=== PATIENT | female | born 2000 | race Caucasian/White ===

== ENCOUNTER 2024-11-30 04:06 | Day surgery (SDC) | payer OTHER ==
[~2024-11-30] VITALS: Ht 157.5 cm; Wt 48.5 kg
[2024-11-30] VITALS (203 sets, daily range): BP systolic 82–134; BP diastolic 45–107
[2024-11-30] MEDS ORDERED: CYANOCOBALAMIN 500 MCG/TAB ( B12) PO PRN (07:30)
[2024-11-30] MEDS ORDERED: diazePAM 5 MG/TAB PO PRN ×2 (07:30→08:30)
[2024-11-30] MEDS ORDERED: FAMOTIDINE 20 MG/TAB PO PRN (07:30)
[2024-11-30] MEDS ORDERED: cloNIDine HCL 0.1 MG/TAB PO PRN (07:30)
[2024-11-30] MEDS ORDERED: SCOPOLAMINE 1.5 MG DIS TD PRN (07:30)
[2024-11-30] MEDS ORDERED: PANTOPRAZOLE SODIUM Sesquihydr 40 MG/TAB PO PRN (07:30)
[2024-11-30] MEDS ORDERED: LACTATED RINGER'S 1,000 ML IV PRN ×2 (07:30→09:40)
[2024-11-30] MEDS ORDERED: ALBUTEROL SULFATE 2.5 MG VIAL IN PRN (07:30)
[2024-11-30] MEDS ORDERED: ASCORBIC ACID 4,000 MG in SODIUM CHLORIDE 0.9% 1,000 ML IV SCH (08:00)
[2024-11-30] MEDS ORDERED: SODIUM CHLORIDE 0.9% 1,000 ML IV PRN ×3 (08:10→16:00)
[2024-11-30] MEDS ORDERED: PHENYLEPHRINE HCL 10 MG in SODIUM CHLORIDE 0.9% 250 ML IV PRN (08:40)
[2024-11-30 09:25] LABS: ALBUMIN 3.4 g/dL (3.2-5.0); BASO% 0.4 % (0-3); BILIRUBIN, TOTAL 0.6 mg/dL (0.02-1.3); CREATININE 0.7 mg/dL (0.5-1.0); EOS% 1.6 % (0-8); HEMATOCRIT 36.4 % (37.0-47.0); HEMOGLOBIN 12.2 g/dl (12.0-16.0); LYMPH% 38.9 % (15-41); MEAN CELL VOLUME 89.7 fL CALC (80.0-100.0); MEAN CORPUSCULAR HGB CONC 33.5 g/dL CAL (32.0-36.0); MONO% 8.4 % (2-13); NEUT# 2.54 thou/uL (2.00-7.15); NEUT% 50.7 % (42-76); RED BLOOD COUNT 4.06 mill/uL (4.20-5.60); RED CELL DISTRI WIDTH 11.5 % (11.5-15.5); TOTAL PROTEIN 5.9 g/dL (6.3-8.2)
[2024-11-30] MEDS ORDERED: DiphenhydrAMINE HCL 50 MG/ML SDV IV PRN (09:40)
[2024-11-30] MEDS ORDERED: PROPOFOL 100 ML IV PRN (09:40)
[2024-11-30] MEDS ORDERED: NALTREXONE HCL 50 MG/TAB VT PRN (09:40)
[2024-11-30] MEDS ORDERED: POTASSIUM CHLORIDE 20 MEQ/100 ML BAG IV PRN (09:40)
[2024-11-30] MEDS ORDERED: ROCURONIUM BROMIDE 10 MG/ML 5ML VIAL IV PRN (09:40)
[2024-11-30] MEDS ORDERED: OCTREOTIDE ACETATE 100 MCG/VIAL SDV SC PRN (09:40)
[2024-11-30] MEDS ORDERED: cloNIDine HCL 0.1 MG/TAB VT PRN (09:40)
[2024-11-30] MEDS ORDERED: LIDOCAINE HCL 1% (10MG/ML) 100 MG/10 ML MDV VT PRN ×2 (09:40)
[2024-11-30] MEDS ORDERED: SUCCINYLCHOLINE CHLORIDE 20 MG/ML 10ML VIAL IV PRN (09:40)
[2024-11-30] MEDS ORDERED: cloNIDine HYDROCHLORIDE 100 MCG/ML 10 ML INJ IV PRN (09:40)
[2024-11-30] MEDS ORDERED: LIDOCAINE HCL 1% (10MG/ML) 100 MG/10 ML MDV IV PRN (09:40)
[2024-11-30] MEDS ORDERED: diazePAM 5 MG/TAB VT PRN (09:40)
[2024-11-30] MEDS ORDERED: PROPOFOL 10 MG/ML 100ML VIAL IV PRN (09:40)
[2024-11-30] MEDS ORDERED: STERILE WATER FOR IRRIGATION 1,000 ML BTL IR PRN (09:40)
[2024-11-30] MEDS ORDERED: MIDAZOLAM HCL 2 MG/2 ML VIAL IV PRN (09:40)
[2024-11-30] MEDS ORDERED: MAGNESIUM SULFATE HEPTAHYDRATE 100 ML IV PRN (09:40)
[2024-11-30] MEDS ORDERED: THIAMINE HCL 100 MG/ML 2ML VIAL IV PRN (09:40)
[2024-11-30] MEDS ORDERED: ONDANSETRON HCl 4 MG/2 ML SDV IV PRN ×3 (09:40→19:00)
[2024-11-30] MEDS ORDERED: NALTREXONE50 MG PO (16:01)
[2024-11-30] MEDS ORDERED: CLONIDINE0.1 MG PO (16:01)
[2024-11-30] MEDS ORDERED: KLONOPIN2 MG PO (16:02)
[2024-11-30] MEDS ORDERED: LORazepam 2 MG/ML IV PRN ×2 (19:00)
[2024-11-30] MEDS ORDERED: ACETAMINOPHEN 1,000 MG/100 ML VIAL IV PRN (19:00)
[2024-11-30] MEDS ORDERED: ACETAMINOPHEN 500 MG TAB PO PRN (19:00)
[2024-11-30] MEDS ORDERED: PROMETHAZINE HCL 25 MG in SODIUM CHLORIDE 0.9% 50 ML IV PRN (19:00)
[2024-11-30] MEDS ORDERED: KETOROLAC TROMETHAMINE 30 MG/ML SDV IV PRN (19:00)
[2024-11-30] MEDS ORDERED: PROMETHAZINE HCL 12.5 MG in SODIUM CHLORIDE 0.9% 50 ML IV PRN (19:00)
[2024-11-30] MEDS ORDERED: HALOPERIDOL LACTATE 5 MG/ML SDV IV PRN (19:00)
[2024-11-30] MEDS ORDERED: PATIENT' OWN MED CONTROLLED 1 EA DOSE IV PRN (21:00)
[2024-11-30] MEDS ORDERED: cloNIDine HCL 0.1 MG/TAB PO SCH (23:00)
[2024-11-30] MEDS ORDERED: clonazePAM 1 MG/TAB PO PRN (23:00)
[2024-12-01] MEDS ORDERED: cloNIDine HCL 0.1 MG/TAB PO PRN (04:00)
[2024-12-01] MEDS ORDERED: clonazePAM 1 MG/TAB PO PRN ×2 (04:00→08:00)
[2024-12-01] MEDS ORDERED: NALTREXONE HCL 50 MG/TAB PO SCH (04:00)
[2024-12-01 04:11] VITALS: BP 95/66
[2024-12-01 05:35] LABS: BASO% 0.1 % (0-3); HEMATOCRIT 36.2 % (37.0-47.0); HEMOGLOBIN 12.8 g/dl (12.0-16.0); IMMATURE GRANULOCYTES 0.3 % (0.0-5.0); LYMPH% 18.2 % (15-41); MEAN CELL VOLUME 88.3 fL CALC (80.0-100.0); MEAN CORPUSCULAR HGB 31.2 pG CALC (26.0-32.0); MEAN CORPUSCULAR HGB CONC 35.4 g/dL CAL (32.0-36.0); MONO% 2.8 % (2-13); NEUT# 5.69 thou/uL (2.00-7.15); NEUT% 78.6 % (42-76); RED BLOOD COUNT 4.1 mill/uL (4.20-5.60); RED CELL DISTRI WIDTH 11.5 % (11.5-15.5)
[2024-12-01 06:03] LABS: ALBUMIN 3.1 g/dL (3.2-5.0); BILIRUBIN, TOTAL 0.8 mg/dL (0.02-1.3); CREATININE 0.8 mg/dL (0.5-1.0); MAGNESIUM 2.2 mg/dL (1.6-2.3); POTASSIUM 4.5 mmol/l (3.5-5.1); TOTAL PROTEIN 5.7 g/dL (6.3-8.2)
[2024-12-01 07:20] VITALS: BP 126/50
[2024-12-01] MEDS ORDERED: ACETAMINOPHEN 325 MG/TAB PO SCH (08:00)
[2024-12-01] MEDS ORDERED: cloNIDine HCL 0.1 MG/TAB PO SCH (08:00)
[2024-12-01] MEDS ORDERED: PANTOPRAZOLE SODIUM Sesquihydr 40 MG/TAB PO SCH (08:00)
[2024-12-01] MEDS ORDERED: Cholecalciferol 2,000 UNIT/TAB PO PRN (09:00)
[2024-12-01] MEDS ORDERED: ACETAMINOPHEN 500 MG TAB PO PRN (09:00)
[2024-12-01] MEDS ORDERED: MAGNESIUM OXIDE 400 MG/TAB PO PRN (09:00)
== END 2024-12-01 14:57 | disposition home or self-care (01) | DRG 897 ==
LOC: ANR 04:06 → MS2 04:06 → EDBD 04:06 → ANR 07:00 → MS2 15:46 → ANR 12-01 14:57
PROVIDERS: ATTEND Anesthesiology Critical Care Medicine
DX: F11.20 Opioid dependence, uncomplicated (principal)
CPT/HCPCS: J1100; J1200; J2060; J2354; J2405; J2550; J2704; J3475; J3480; J3490